=== PATIENT | male | born 1950 | race African-American/Black ===

== ENCOUNTER 2016-04-04 13:12 | Inpatient (IN) ==
[2016-04-04] MEDS ORDERED: DEXAMETHASONE 10 MG/1 ML VIAL IM STA (13:45)
[2016-04-04] MEDS ORDERED: cefTRIAXone 250 MG VIAL IM STA (13:45)
--- NOTE | 2016-04-04 13:55 | Emergency Department Note ---
Arrival - Arrival Chief Complaint: Upper Respiratory Stated Complaint: weak,low bp,feels faint ED Nursing Triage Note: C/o productive cough, sore throat, congestion, and runny nose-onset one week ago. Reports generalized weakness and "just not feeling well". Last chemo was last week. Mode of Arrival: Wheelchair Limitations: No Limitations Source: Patient Time Seen by Provider: 04/04/16 13:45 - History of Present Illness HPI Narrative: This 66-year-old black male presents with just several hours of sore throat, sinus congestion and maxillary tenderness, rhinorrhea, and cough productive of mcneill sputum. The patient just had an EGD yesterday for esophageal stricture dilatation at which time he was diagnosed with a bezoar as well. This was an uncomplicated procedure and the patient felt well last evening. He is currently under chemotherapy for multiple myeloma. He specifically denies any shaking chills, fever, nausea, or vomiting. Currently he appears in no acute distress. Onset (ago): hour(s) (patient presents 6 hours post onset of symptoms) Consistency: constant Allergies/Adverse Reactions: Allergies Allergy/AdvReac Type Severity Reaction Status Date / Time No Known Allergies Allergy Verified 11/08/15 09:41 Home Medications: Home Medications Medication Instructions Recorded Confirmed Type Glyburide/Metformin HCl 1 tablet PO TID 03/16/15 04/04/16 History [Glyburide-Metformin 5-500 mg] HYDROcodone/ACETAMIN 7.5-325 1 tablet PO Q4H PRN 03/16/15 04/04/16 History [[place] 7.5-325] Tamsulosin [Flomax] 1 tablet PO BID 03/16/15 04/04/16 History Insulin Glargine [Lantus] 35 unit SUBCUT BEDTIME 03/18/15 04/04/16 History Amitriptyline [Elavil] 25 mg PO BEDTIME 09/03/15 04/04/16 History Dexlansoprazole [Dexilant] 60 mg PO DAILY 09/03/15 04/04/16 History Carvedilol [Coreg] 3.125 mg PO BID #60 tablet 09/07/15 04/04/16 Rx Ipratropium/Albuterol Inhaler 1 puff INH QID #1 inhaler 11/14/15 04/04/16 Rx [Combivent Respimat Inhaler] Dexamethasone [Dexamethasone Tab] 40 mg PO Q7D 04/04/16 04/04/16 History Lisinopril 2.5 mg PO DAILY 04/04/16 04/04/16 History Review of System - Review of System 12 point system: reviewed and no additional remarkable complaints except as stated - Review of System Constitutional: Present: as per HPI Head/Ears/Nose/Throat: Present: see HPI Respiratory: Present: as per HPI Gastrointestinal: Present: as per HPI Medical,Surgical,& Family Hx - Medical History Cardio: History of: CHF, Hypertension No history of: Aneurysm, Cardiac Dysrhythmia, Cerebrovascular Disease, Congenital Heart Disease, [place], Pacemaker Neurology: No history of: Brain Aneurysm, Cerebral Hemorrhage, Seizures Endocrine: History of: Diabetes Mellitus (IDDM) Rheumatology: No history of;: Fibromyalgia Respiratory: History of: Bronchitis, COPD No history of: Obstructive Sleep Apnea Renal: No history of: Renal (Kidney) Cancer Genitourinary: No history of: Bladder Problem, Prostate Problems, Genitourinary Cancer Gastrointestinal: History of: GERD, GI Problems (esophageal stricture) No history of: Gastrointestinal Bleed Musculoskeletal: No history of: Amputation, Herniated Disk Hematology: History of: Hematologic Cancer (multiple myeloma) Other: History of: Cancer (MULTIPLE MYOLOMA) - Surgical History Cardiac Surgeries: Patient Denies: Cardiac Catheterization Thoracic Surgeries: Patient denies;: Lobectomy Neurologic Surgeries: Patient denies: Brain Aneurysm, Cerebral Hemorrhage, Neurologic Surgery Abdominal Surgeries: Surgical HX of: Abdominal Surgery, EGD (March [address] Gutierrez) Reproductive Surgeries: Patient denies;: Genitourinary Surgery Orthopedic Surgeries: Patient denies;: Orthopedic Surgery - Family History Family History: Reports;: Family Diabetes - Social History Smoking Status: Former smoker Frequency of Alcohol Use: None Type of Drug Use: None Exam Physical Examination: GENERAL: Well developed, well nourished white male in no acute distress. HEENT: Normocephalic. No trauma. Moist mucous membranes. EOMI. PERRLA. Ears : Bilateral [place] TMs, nose: Nasal mucosa erythema and edema with tender maxillary sinuses, throat: Mild injection NECK: Supple. Cervical adenopathy. CARDIAC: Regular. No murmurs. Rate 118 CHEST: Clear to auscultation. No respiratory distress. O2 sat 98% ABDOMEN: Soft. Nontender. Active bowel sounds. EXTREMITIES: No trauma. Normal ROM. No pedal edema. SKIN: No diaphoresis. No rash. NEURO: Alert. Physiologic exam No focal deficits. Vital Signs: Vital Signs Temperature 98.8 F 04/04/16 13:20 Pulse Rate 114 H 04/04/16 15:00 Respiratory Rate 20 04/04/16 15:00 Blood Pressure 180/98 04/04/16 13:20 O2 Sat by Pulse Oximetry 99 04/04/16 15:00 Course - Reevaluation(s) Reevaluation #1: Discussed with patient and family the need for hospitalization given his severe anemia and renal failure. - Consultations Consultation #1: Discussed with Dr. Alcazar, covering for Dr. Campa, who will admit for further evaluation treatment. Results - Labs CBC & BMP: 04/04/16 14:10 04/04/16 14:00 Labs: I reviewed the patient's laboratory noted the severely depressed hematocrit and moderately depressed platelets. I likewise noted elevated renal function numbers consistent with acute renal failure. - Diagnostic Findings Procedure: Chest x-ray: image reviewed by me, report reviewed by me ( cardiomegaly with questionable lower lobe opacities versus atelectasis) Disposition Clinical Impression: severe anemia, acute renal failure Case discussed with: patient, patient's family Condition: Guarded Time of Disposition: 16:23
[2016-04-04] MEDS ORDERED: ALBUTEROL 2.5 MG/3 ML NEB RESP TX STA (14:06)
[2016-04-04] MEDS ORDERED: SODIUM CHLORIDE 0.9% 500 ML IV STA (14:06)
[2016-04-04] MEDS ORDERED: methylPREDNISolone SOD SUC 125 MG/2 ML VIAL IV STA (14:06)
[2016-04-04] MEDS ORDERED: DEXAMETHASONE 10 MG/1 ML VIAL ONE (14:06)
[2016-04-04] MEDS ORDERED: LEVOFLOXACIN INJ 750 MG in PREMIX 1 EACH IV STA (14:06)
[2016-04-04 14:20] LABS: Eosinophils # 0.2 10*3/uL (0.0-0.87); Hematocrit 19.1 VOL% (42.0-52.0); Immature Granulocytes % 1.5 %; Immature Granulocytes Absolute 0.08 #; Lymphocytes # 0.2 10*3/uL (1.4-4.0); Lymphocytes % 3.8 % (21.2-54.2); Mean Corpuscular HGB Conc 31.4 GM/DL (32-36); Mean Corpuscular Hemoglobin 31 PG (27-34); Mean Corpuscular Volume 97.9 FL (87-102); Mean Platelet Volume 12.4 FL (9.6-12.0); Monocytes # 0.3 10*3/uL (0.11-0.8); Monocytes % 4.7 % (1.7-12.7); Neutrophils # 4.6 10*3/uL (1.4-7.4); Platelet Count 40 10*3/uL (130-400); Red Blood Count 1.95 10*6/uL (3.8-5.5); Red Cell Distribution Width 18.1 % (9.3-17.3); White Blood Count 5.3 10*3/uL (4.5-13.71)
[2016-04-04 14:26] LABS: INR 1.1; PT Patient Result 11.3 SECS; Partial Thromboplastin Time 29.2 SECS (0-40)
[2016-04-04] MEDS ORDERED: methylPREDNISolone SOD SUC 125 MG/2 ML VIAL ONE (14:26)
[2016-04-04] MEDS ORDERED: MEROPENEM 1,000 MG in SODIUM CHLORIDE 0.9% 100 ML IV STA (14:31)
[2016-04-04] MEDS ORDERED: MEROPENEM 1,000 MG VIAL IV ONE (14:40)
[2016-04-04 14:41] LABS: Albumin 3.2 G/DL (3.4-5.0); Bilirubin,Total 0.8 MG/DL (0.2-1.0); Calcium 7.1 MG/DL (8.5-10.1); Osmolality,Calculated 301.1 MOS/KG (273-304); Potassium 4.8 MMOL/L (3.5-5.1); Total Protein 6.4 G/DL (6.4-8.3)
--- NOTE | 2016-04-04 14:44 | XRay Report ---
Referring Physician: Carlos Earl Exam: XR chest 1V portable Date: April 04, 2016 at 2:14 PM Reason: Shortness of breath Comparison: Chest one view portable February 21, 2016 Findings: A right-sided Mediport is again present, and the cardiac silhouette is again mildly enlarged. There are mild scattered opacities within both lower lung zones. This likely represents atelectasis and possibly mild edema. No pneumothorax or definite pleural fluid is identified. The osseous structures appear stable. Impression: 1. Mild cardiomegaly. 2. There are mild scattered opacities within both lower lung zones. This likely represents atelectasis and possibly mild pulmonary edema. PROCEDURE INTERPRETED AT [facility] [place] DEPARTMENT OF RADIOLOGY Final Report Signed by: Dr. Samir Garcia
[2016-04-04 14:56] LABS: Alanine Aminotransferase 19 U/L (16-61); Albumin 3.2 G/DL (3.4-5.0); Alkaline Phosphatase 94 U/L (45-117); Aspartate Amino Transferase 11 U/L (0-37); Blood Urea Nitrogen 51 MG/DL (7-18); Calcium 7.2 MG/DL (8.5-10.1); Glucose 207 MG/DL (74-106); Osmolality,Calculated 300.3 MOS/KG (273-304); Potassium 4.8 MMOL/L (3.5-5.1); Sodium 141 MMOL/L (136-145); Total Protein 6.4 G/DL (6.4-8.3)
[2016-04-04 14:59] LABS: Troponin I Only 0.084 NG/ML (0.00-0.045)
[2016-04-04] MEDS ORDERED: ONDANSETRON 4 MG/2 ML VIAL IV PRN (16:12)
[2016-04-04 16:54] LABS: Band Neutrophils 3 % (0-10); Eosinophils 1 % (0-10); Lymphocytes 3 % (20-55); Platelet Estimate Decreased; Segmented Neutrophils 92 % (50-85); Total Cells Counted 100
[2016-04-04 16:55] LABS: Ovalocytes Few; Poikilocytosis 1+; Tear Drop Cells Few
--- NOTE | 2016-04-04 18:00 | Hospitalist History & Physical ---
Assessment and Plan - Time spent with patient Time spent with patient: Greater than 30 minutes (due to assessment, plan and documentation) (1) Flu Status: Acute Assessment and plan: admit to med surg tamiflu symptomatic treatment Current Visit: Yes (2) Acute kidney injury Status: Acute Assessment and plan: IVF's and repeat labs. Current Visit: Yes (3) Acute bronchitis Status: Acute Assessment and plan: iv abx Current Visit: Yes (4) Anemia Status: Acute Assessment and plan: transfuse 2 units PRBC's. repeat H/H post transfusion Current Visit: Yes (5) Multiple myeloma Status: Acute Assessment and plan: on chemotherapy. last tx 1 week ago per patient report on Velcade. Dr. Campa is his Oncologist Current Visit: No (6) Diabetes Status: Acute Current Visit: Yes (7) Hypertension Status: Chronic Current Visit: No Qualifiers: Hypertension type: essential hypertension Qualified Code(s): I10 - Essential (primary) hypertension History of Present Illness Chief complaint: upper respiratory symptoms History of present illness: Mr. Mcginnis is a 66 year old male who presents to the ED today for complaints of upper respiratory symptoms. He states that about 2 days ago he began to feel worse than usual. He states that he doesn't feel well most days. He is on Velcade for treatment of his multiple myeloma. Dr. Campa is his oncologist. H/ H is 09/15. WBC is 5.3 PLT 40. Initially it was thought that Mr. Mcginnis would be admitted to Dr. 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 However, once Mr. Mcginnis's flu swab returned positive, Dr. Alcazar refused to accept Mr. Mcginnis. I spoke with Dr. Deonte Harris who recommended that we admit Mr. Mcginnis and treat his acute issues at hand. I did call and speak to Dr. Alcazar regarding Mr. Mcginnis's admission and he felt that we should admit, treat for the flu and transfuse 2 units PRBC's. Upon assessment and interview, Mr. Mcginnis has a hx of DM and HTN that are well controlled on medications. He has had an episode of CHF in the past and sees Dr. Ricky Ashley for this. His last follow up appointment was in February 2016. He has had an echo and said everything was "okay". He also underwent a heart catherization that was negative. He did not require stents. Currently he is tachycardic in the low 100's. His creatinine is also noted to be 2.7 with his last creatinine being normal c/w acute renal failure. His calcium is low 7.2. He did have a cough productive of green and yellow sputum and his lungs are course bilaterally. CXR does not show an acute pneumonia at this time, and at least we will treat him for an Acute Bronchitis. He has a family medical history significant for HTN and DM, but no heart disease.He will be admitted for transfusion and tamiflu for influenza. He will also be given fluids for his acute kidney injury. Further plan and addendum to follow by Dr. Froilan Rajput. Home Medications Medication Instructions Recorded Confirmed Type Glyburide/Metformin HCl 1 tablet PO TID 03/16/15 04/04/16 History [Glyburide-Metformin 5-500 mg] HYDROcodone/ACETAMIN 7.5-325 1 tablet PO Q4H PRN 03/16/15 04/04/16 History [[place] 7.5-325] Tamsulosin [Flomax] 1 tablet PO BID 03/16/15 04/04/16 History Insulin Glargine [Lantus] 35 unit SUBCUT BEDTIME 03/18/15 04/04/16 History Amitriptyline [Elavil] 25 mg PO BEDTIME 09/03/15 04/04/16 History Dexlansoprazole [Dexilant] 60 mg PO DAILY 09/03/15 04/04/16 History Carvedilol [Coreg] 3.125 mg PO BID #60 tablet 09/07/15 04/04/16 Rx Ipratropium/Albuterol Inhaler 1 puff INH QID #1 inhaler 11/14/15 04/04/16 Rx [Combivent Respimat Inhaler] Dexamethasone [Dexamethasone Tab] 40 mg PO Q7D 04/04/16 04/04/16 History Lisinopril 2.5 mg PO DAILY 04/04/16 04/04/16 History Allergies Allergy/AdvReac Type Severity Reaction Status Date / Time No Known Allergies Allergy Verified 11/08/15 09:41 Medical,Surgical,& Family Hx - Medical History Cardio: History of: CHF, Hypertension No history of: Aneurysm, Cardiac Dysrhythmia, Cerebrovascular Disease, Congenital Heart Disease, [place], Pacemaker Neurology: No history of: Brain Aneurysm, Cerebral Hemorrhage, Seizures Endocrine: History of: Diabetes Mellitus (IDDM) Rheumatology: No history of;: Fibromyalgia Respiratory: History of: Bronchitis, COPD No history of: Obstructive Sleep Apnea Renal: No history of: Renal (Kidney) Cancer Genitourinary: No history of: Bladder Problem, Prostate Problems, Genitourinary Cancer Gastrointestinal: History of: GERD, GI Problems (esophageal stricture) No history of: Gastrointestinal Bleed Musculoskeletal: No history of: Amputation, Herniated Disk Hematology: History of: Hematologic Cancer (multiple myeloma) Other: History of: Cancer (MULTIPLE MYOLOMA) - Surgical History Cardiac Surgeries: Patient Denies: Cardiac Catheterization Thoracic Surgeries: Patient denies;: Lobectomy Neurologic Surgeries: Patient denies: Brain Aneurysm, Cerebral Hemorrhage, Neurologic Surgery Abdominal Surgeries: Surgical HX of: Abdominal Surgery, EGD (March [address] Gutierrez) Reproductive Surgeries: Patient denies;: Genitourinary Surgery Orthopedic Surgeries: Patient denies;: Orthopedic Surgery - Family History Family History: Reports;: Family Diabetes - Social History Smoking Status: Former smoker Frequency of Alcohol Use: None Type of Drug Use: None Marital Status: Lives With:: Spouse Functional capacity: independent ambulation - Constitutional Constitutional: Present: weakness. Absent: chills, fever(s) - EENT Eyes: Absent: blurry vision, diplopia Ears: Absent: decreased hearing, tinnitus Nose, mouth and throat: Absent: dysphagia, headache(s) - Cardiovascular Cardiovascular: Present: dyspnea on exertion. Absent: chest pain at rest, palpitations - Respiratory Respiratory: Present: cough, dyspnea on exertion, change in phlegm color (yellow /green sputum. ). Absent: hemoptysis - Gastrointestinal Gastrointestinal: Absent: abdominal pain, melena, nausea, vomiting - Genitourinary Genitourinary: Absent: difficulty urinating, dysuria, hematuria - Musculoskeletal Musculoskeletal: Absent: back pain, joint swelling - Neurological Neurological: Absent: confusion, dizziness - Psychiatric Psychiatric: Absent: anxiety, confusion, depression - Endocrine Endocrine: Absent: cold intolerance, heat intolerance - Hematologic/Lymphatic Hematologic/Lymphatic: Present: other (On chemotherapy for Multiple Myeloma) Exam - Constitutional Vitals: Period Temp Pulse Resp BP Sys/Treoj Pulse Ox Last 24 Hr 98.8 F 114-120 20-20 180/98 98-99 General appearance: normal weight, no acute distress - Head Head exam: Present: normal inspection, normocephalic - Eye Eye exam: Present: EOMI. Absent: scleral icterus Pupils: Present: MARIOLA, normal accommodation - ENT ENT exam: Present: normal exam, normal oropharynx - Neck Neck exam: Present: normal inspection. Absent: lymphadenopathy - Respiratory Respiratory exam: Present: other (scattered course lung sounds bilaterally. ). Absent: clear to auscultation bilaterally, accessory muscle use - Cardiovascular Cardiovascular exam: Present: tachycardia. Absent: carotid bruit - GI/Abdominal GI/Abdominal exam: Present: normal bowel sounds, soft. Absent: tenderness - Extremities Exam Extremities exam: Present: normal inspection. Absent: edema - Back Exam Back exam: Present: normal inspection. Absent: muscle spasm - Neurological Exam Neurological exam: Present: alert, oriented X3 - Psychiatric Psychiatric exam: Present: normal affect, normal mood - Skin Skin exam: Present: normal color, warm, dry, intact Results - Labs CBC & BMP: 04/04/16 14:10 04/04/16 14:00 Lab Results: I have reviewed the past 24 hour labs - Diagnostic Findings Procedure: Chest x-ray: report reviewed by me (no acute infiltrate)
[2016-04-04] MEDS ORDERED: GLUCAGON 1 MG VIAL IM PRN (18:02)
[2016-04-04] MEDS ORDERED: DEXTROSE 50% 25 GM/50 ML VIAL IV PRN (18:02)
[2016-04-04] MEDS ORDERED: BISACODYL 5 MG TABLET PO PRN ×2 (18:02→19:20)
[2016-04-04] MEDS ORDERED: MORPHINE 2 MG/1 ML SYRINGE IV PRN (18:02)
[2016-04-04] MEDS ORDERED: ACETAMINOPHEN 325 MG TABLET PO PRN (18:02)
[2016-04-04] MEDS ORDERED: DEXAMETHASONE 4 MG TABLET PO SCH (18:30)
[2016-04-04] MEDS ORDERED: LEVOFLOXACIN INJ 750 MG in PREMIX 1 EACH IV SCH ×2 (18:30→21:00)
[2016-04-04] MEDS: SODIUM CHLORIDE 0.9% 1,000 ML IV SCH (20:08)
[2016-04-04] MEDS: ALBUTEROL/IPRATROPIUM 3 ML NEB RESP TX SCH (20:30)
[2016-04-04] MEDS ORDERED: AMITRIPTYLINE 25 MG TABLET PO SCH (21:00)
[2016-04-04] MEDS ORDERED: OSELTAMIVIR 30 MG CAPSULE PO SCH (21:00)
[2016-04-04] MEDS ORDERED: IPRATROPIUM/ALBUTEROL INHALER INH SCH (21:00)
[2016-04-04] MEDS ORDERED: INSULIN GLARGINE 100 UNIT/ML SUBCUT SCH (21:00)
[2016-04-04] MEDS ORDERED: CARVEDILOL 3.125 MG TABLET PO SCH (21:00)
[2016-04-04] MEDS ORDERED: SODIUM CHLORIDE 0.9% 250 ML IV PRN (21:04)
[2016-04-04] MEDS: INSULIN GLARGINE 100 UNIT/ML SUBCUT SCH (21:13)
[2016-04-04] MEDS: INSULIN REGULAR 100 UNIT/ML SUBCUT SCH (21:13)
[2016-04-04] MEDS: TAMSULOSIN 0.4 MG CAPSULE PO SCH (21:13)
[2016-04-04] MEDS: AMITRIPTYLINE 25 MG TABLET PO SCH (21:13)
[2016-04-04] MEDS: CARVEDILOL 3.125 MG TABLET PO SCH (21:13)
[2016-04-04] MEDS: OSELTAMIVIR 30 MG CAPSULE PO SCH (21:15)
[2016-04-05 06:56] LABS: Eosinophils # 0.1 10*3/uL (0.0-0.87); Eosinophils % 1.9 % (0.00-10.9); Hematocrit 26.8 VOL% (42.0-52.0); Hemoglobin 8.6 GM/DL (14.0-18.0); Immature Granulocytes % 0.6 %; Immature Granulocytes Absolute 0.02 #; Lymphocytes # 0.1 10*3/uL (1.4-4.0); Lymphocytes % 3.8 % (21.2-54.2); Mean Corpuscular HGB Conc 32.1 GM/DL (32-36); Mean Corpuscular Hemoglobin 30 PG (27-34); Mean Corpuscular Volume 92.7 FL (87-102); Mean Platelet Volume 12.5 FL (9.6-12.0); Monocytes # 0.4 10*3/uL (0.11-0.8); Monocytes % 12.3 % (1.7-12.7); Neutrophils # 2.6 10*3/uL (1.4-7.4); Neutrophils % 81.4 % (38.7-73.9); Red Blood Count 2.89 10*6/uL (3.8-5.5); Red Cell Distribution Width 17.9 % (9.3-17.3); White Blood Count 3.2 10*3/uL (4.5-13.71)
[2016-04-05 06:57] LABS: Platelet Count 28 10*3/uL (130-400)
[2016-04-05] MEDS ORDERED: SODIUM CHLORIDE 0.9% 250 ML IV PRN (07:09)
[2016-04-05 07:29] LABS: Calcium 7.1 MG/DL (8.5-10.1); Osmolality,Calculated 302.7 MOS/KG (273-304)
[2016-04-05] MEDS: ALBUTEROL/IPRATROPIUM 3 ML NEB RESP TX SCH ×4 (07:38→19:39)
[2016-04-05] MEDS: INSULIN REGULAR 100 UNIT/ML SUBCUT SCH ×4 (07:51→21:28)
[2016-04-05] MEDS ORDERED: NON-FORMULARY MEDICATION (Dexlansoprazole [Dexilant] 60 MG) PO SCH (09:00)
[2016-04-05] MEDS: OSELTAMIVIR 30 MG CAPSULE PO SCH ×2 (09:18→21:24)
[2016-04-05] MEDS: CARVEDILOL 3.125 MG TABLET PO SCH ×2 (09:18→21:23)
[2016-04-05] MEDS: PANTOPRAZOLE 40 MG TABLET PO SCH (09:18)
[2016-04-05] MEDS: TAMSULOSIN 0.4 MG CAPSULE PO SCH ×2 (09:19→21:23)
[2016-04-05 09:53] LABS: Hypochromasia 1+; Microcytosis 1+
[2016-04-05] MEDS: SODIUM CHLORIDE 0.9% 1,000 ML IV SCH ×3 (12:48→21:26)
--- NOTE | 2016-04-05 14:12 | Hospitalist Progress Note ---
Assessment and Plan (1) Influenza A Status: Acute Current Visit: Yes (2) Acute bronchitis Status: Acute Current Visit: Yes (3) Multiple myeloma Status: Acute Current Visit: Yes (4) Acute renal failure due to tubular necrosis Status: Acute Current Visit: Yes (5) Anemia of chronic disease Status: Acute Current Visit: Yes (6) Thrombocytopenia Status: Acute Assessment and plan: Plan: 04/05: Continue Tamiflu, Levaquin, DuoNeb's and supplemental oxygen. We'll add some guaifenesin to help loosen secretions. Otherwise continue current medications and supportive care. Current Visit: Yes Hospitalist: Subjective Interval history: Mr. Mcginnis states he feels "a lot better," than on presentation. He is still coughing frequently. He does feel like he cannot cough up his secretions is easily. He has been afebrile, he denies shortness of breath or chest pain. He received 2 units packed red blood cells as well as a unit of platelets thus far. Exam - Constitutional Vitals: Period Temp Pulse Resp BP Sys/Trejo Pulse Ox Last 24 Hr 96.5 F-98.1 F 89-110 16-20 93-119/51-80 98-100 Exam: EXAM: CONSTITUTIONAL: non toxic, NAD HEENT: NC, AT, OP benign, MARIOLA, EOMI CV: RRR no m/g/r, Mediport right chest benign RESP: Coarse bilaterally with expiratory wheezes GI: abd soft, NT, ND, +bowel sounds INTEGUMENTARY: no lesions or rash EXTREMITIES: no c/c/e NEURO: no focal deficits PSYCH: unremarkable, A/O x3 Results - Labs CBC & BMP: 04/05/16 06:46 04/05/16 06:46 Lab Results: I have reviewed the past 24 hour labs - Diagnostic Findings Procedure: Chest x-ray: image reviewed by me, report reviewed by me Quality Measures - VTE Contraindication to Pharmacological VTE Prophylaxis: High Risk of Bleeding Specialty Discharge - Follow Up or Referrals - Discharge Medications No Action HYDROcodone/ACETAMIN 7.5-325 [[place] 7.5-325] 1 tablet PO Q4H PRN PRN Reason: Pain Glyburide/Metformin HCl [Glyburide-Metformin 5-500 mg] 1 tablet PO TID Tamsulosin [Flomax] 1 tablet PO BID Insulin Glargine [Lantus] 35 unit SUBCUT BEDTIME Amitriptyline [Elavil] 25 mg PO BEDTIME Dexlansoprazole [Dexilant] 60 mg PO DAILY Carvedilol [Coreg] 3.125 mg PO BID #60 tablet Ipratropium/Albuterol Inhaler [Combivent Respimat Inhaler] 1 puff INH QID #1 inhaler Lisinopril 2.5 mg PO DAILY Dexamethasone [Dexamethasone Tab] 40 mg PO Q7D
[2016-04-05] MEDS: AMITRIPTYLINE 25 MG TABLET PO SCH (21:23)
[2016-04-05] MEDS: guaiFENesin/DM ER 600-30 MG TABLET PO SCH (21:24)
[2016-04-05] MEDS: INSULIN GLARGINE 100 UNIT/ML SUBCUT SCH (21:24)
[2016-04-06 06:06] LABS: Basophils % 0.5 % (0.0-0.8); Eosinophils # 0.2 10*3/uL (0.0-0.87); Eosinophils % 7.7 % (0.00-10.9); Hematocrit 25.2 VOL% (42.0-52.0); Hemoglobin 7.8 GM/DL (14.0-18.0); Immature Granulocytes % 0.5 %; Immature Granulocytes Absolute 0.01 #; Lymphocytes # 0.1 10*3/uL (1.4-4.0); Lymphocytes % 5.9 % (21.2-54.2); Mean Corpuscular Hemoglobin 29 PG (27-34); Mean Corpuscular Volume 94.7 FL (87-102); Monocytes # 0.2 10*3/uL (0.11-0.8); Monocytes % 10.4 % (1.7-12.7); Neutrophils # 1.7 10*3/uL (1.4-7.4); Platelet Count 54 10*3/uL (130-400); Red Blood Count 2.66 10*6/uL (3.8-5.5); Red Cell Distribution Width 18.3 % (9.3-17.3); White Blood Count 2.2 10*3/uL (4.5-13.71)
[2016-04-06 06:42] LABS: Band Neutrophils 4 % (0-10); Eosinophils 8 % (0-10); Hypochromasia 1+; Lymphocytes 13 % (20-55); Macrocytosis 1+; Segmented Neutrophils 69 % (50-85); Total Cells Counted 100
[2016-04-06 06:43] LABS: Platelet Estimate Decreased
[2016-04-06 06:44] LABS: Calcium 6.4 MG/DL (8.5-10.1); Potassium 4.2 MMOL/L (3.5-5.1)
[2016-04-06] MEDS: ALBUTEROL/IPRATROPIUM 3 ML NEB RESP TX SCH ×4 (07:08→20:11)
[2016-04-06] MEDS: INSULIN REGULAR 100 UNIT/ML SUBCUT SCH ×4 (07:48→21:12)
[2016-04-06] MEDS: guaiFENesin/DM ER 600-30 MG TABLET PO SCH ×2 (09:11→21:12)
[2016-04-06] MEDS: TAMSULOSIN 0.4 MG CAPSULE PO SCH ×2 (09:11→21:12)
[2016-04-06] MEDS: CARVEDILOL 3.125 MG TABLET PO SCH ×2 (09:11→21:12)
[2016-04-06] MEDS: OSELTAMIVIR 30 MG CAPSULE PO SCH (09:11)
[2016-04-06] MEDS: PANTOPRAZOLE 40 MG TABLET PO SCH (09:11)
--- NOTE | 2016-04-06 11:13 | Oncology Progress Note ---
Oncology Subjective PN Interval history: For the record, I was contacted by the emergency room physician who did not provide complete information on the patient. He told me the patient was on chemotherapy for myeloma and was anemic and weak. He did not tell me that the patient had tested positive for influenza which was a contraindication to admitting the patient to the oncology unit. I found this information out from the emergency room nurse who subsequently called me. Actually, I called her first because I could not access any of this patient's electronic medical records even though I have been assured by IT that I would be able to do so. I was never able to access all of the patient's lab work. I was also not informed that the patient had a history of congestive heart failure. While I was informed that the patient had an elevated serum creatinine, it would have also been important to know that the patient had upper GI problems that included strictures of the esophagus for which he had been recently treated. In addition, in spite of what the admitting physician states on line 8 of the history of present illness, the only physician I spoke to was the emergency room physician. I never discussed this patient's case with the admitting physician. I also never refused to consult on this patient although I have not received a consultation request up to this point. Exam - Constitutional Vitals: Period Temp Pulse Resp BP Sys/Trejo Pulse Ox Last 24 Hr 97.4 F-98.5 F 74-111 16-20 98-144/52-80 91-100 Results - Labs CBC & BMP: 04/06/16 05:21 04/06/16 05:21 Quality Measures - VTE Contraindication to Pharmacological VTE Prophylaxis: High Risk of Bleeding Specialty Discharge - Follow Up or Referrals - Discharge Medications No Action HYDROcodone/ACETAMIN 7.5-325 [[place] 7.5-325] 1 tablet PO Q4H PRN PRN Reason: Pain Glyburide/Metformin HCl [Glyburide-Metformin 5-500 mg] 1 tablet PO TID Tamsulosin [Flomax] 1 tablet PO BID Insulin Glargine [Lantus] 35 unit SUBCUT BEDTIME Amitriptyline [Elavil] 25 mg PO BEDTIME Dexlansoprazole [Dexilant] 60 mg PO DAILY Carvedilol [Coreg] 3.125 mg PO BID #60 tablet Ipratropium/Albuterol Inhaler [Combivent Respimat Inhaler] 1 puff INH QID #1 inhaler Lisinopril 2.5 mg PO DAILY Dexamethasone [Dexamethasone Tab] 40 mg PO Q7D
[2016-04-06] MEDS ORDERED: FUROSEMIDE 20 MG/2 ML VIAL IV ONE (11:26)
[2016-04-06] MEDS: SODIUM CHLORIDE 0.9% 1,000 ML IV SCH (11:27)
--- NOTE | 2016-04-06 12:42 | XRay Report ---
History: Shortness of breath Date: 04/06/2016 Study: Chest x-ray AP portable Comparison exam: Chest x-ray April 04, 2016 The right upper extremity Mediport type catheter is stable in appearance. There is continued cardiomegaly. The mediastinal contours are unchanged. The pulmonary vasculature is slightly prominent. There is some increased patchy and hazy edema/infiltrate in either lower lung. There is mild elevation of the left hemidiaphragm. There is no gross pleural effusion. The osseous structures are unremarkable. Impression: Bibasilar airspace disease which could represent pulmonary edema or pneumonia PROCEDURE INTERPRETED AT [facility] DEPARTMENT OF RADIOLOGY Final Report Signed by: Dr. Florencia Sanchez
--- NOTE | 2016-04-06 14:35 | Hospitalist Progress Note ---
Assessment and Plan (1) Influenza A Status: Acute Current Visit: Yes (2) Multiple myeloma Status: Acute Current Visit: Yes (3) Bacterial pneumonia Status: Acute Current Visit: Yes (4) Acute renal failure due to tubular necrosis Status: Acute Current Visit: Yes (5) Anemia of chronic disease Status: Chronic Current Visit: Yes (6) Thrombocytopenia Status: Chronic Assessment and plan: Plan: 04/05: Continue Tamiflu, Levaquin, DuoNeb's and supplemental oxygen. We'll add some guaifenesin to help loosen secretions. Otherwise continue current medications and supportive care. 04/06: We'll adjust his Tamiflu and Levaquin dosage based on improved renal function. Continue duo nebs and oxygen as needed. He recently had an esophageal dilation and is having no problems with dysphagia. He feels like he is having a little trouble coughing up secretions, for now we'll continue the Mucinex to see if this loosens up. Otherwise continue supportive care. Current Visit: Yes Hospitalist: Subjective Interval history: Mr. Mcginnis is a very pleasant 66-year-old male admitted with influenza. He became a little more short of breath this morning. We have stopped his fluids, given the dose of Lasix and obtained a chest x-ray, which showed possible developing pneumonia. We already have him on Tamiflu and Levaquin. He is sitting up in bed without any oxygen and appears fairly comfortable. He is in no distress. Other than lack of appetite he has no complaints. He is receive blood and platelets and his counts are stable at this time. Exam - Constitutional Vitals: Period Temp Pulse Resp BP Sys/Trejo Pulse Ox Last 24 Hr 97.4 F-99.0 F 74-111 16-20 102-144/52-71 91-100 Exam: EXAM: CONSTITUTIONAL: non toxic, NAD HEENT: [place], AT, OP benign, MARIOLA, EOMI CV: RRR no m/g/r, Mediport right chest benign RESP: Coarse bilaterally with scattered rales bilaterally GI: abd soft, NT, ND, +bowel sounds INTEGUMENTARY: no lesions or rash EXTREMITIES: no c/c/e NEURO: no focal deficits PSYCH: unremarkable, A/O x3 Results - Labs CBC & BMP: 04/06/16 05:21 04/06/16 05:21 Lab Results: I have reviewed the past 24 hour labs - Diagnostic Findings Procedure: Chest x-ray: image reviewed by me, report reviewed by me Quality Measures - VTE Contraindication to Pharmacological VTE Prophylaxis: High Risk of Bleeding Specialty Discharge - Follow Up or Referrals - Discharge Medications No Action RX: HYDROcodone/ACETAMIN 7.5-325 [[place] 7.5-325] 1 tablet PO Q4H PRN PRN Reason: Pain RX: Glyburide/Metformin HCl [Glyburide-Metformin 5-500 mg] 1 tablet PO TID RX: Tamsulosin [Flomax] 1 tablet PO BID RX: Insulin Glargine [Lantus] 35 unit SUBCUT BEDTIME RX: Amitriptyline [Elavil] 25 mg PO BEDTIME RX: Dexlansoprazole [Dexilant] 60 mg PO DAILY RX: Carvedilol [Coreg] 3.125 mg PO BID #60 tablet RX: Ipratropium/Albuterol Inhaler [Combivent Respimat Inhaler] 1 puff INH QID #1 inhaler RX: Lisinopril 2.5 mg PO DAILY Dexamethasone [Dexamethasone Tab] 40 mg PO Q7D
[2016-04-06] MEDS: LEVOFLOXACIN INJ 750 MG in PREMIX 1 EACH IV SCH (15:19)
[2016-04-06] MEDS: AMITRIPTYLINE 25 MG TABLET PO SCH (21:12)
[2016-04-06] MEDS: OSELTAMIVIR 75 MG CAPSULE PO SCH (21:12)
[2016-04-06] MEDS: INSULIN GLARGINE 100 UNIT/ML SUBCUT SCH (21:15)
[2016-04-07] MEDS: ALBUTEROL/IPRATROPIUM 3 ML NEB RESP TX SCH ×4 (07:17→20:12)
[2016-04-07 07:25] LABS: Basophils % 0.5 % (0.0-0.8); Eosinophils # 0.1 10*3/uL (0.0-0.87); Eosinophils % 4.2 % (0.00-10.9); Hematocrit 25.5 VOL% (42.0-52.0); Hemoglobin 8.1 GM/DL (14.0-18.0); Immature Granulocytes % 0.9 %; Immature Granulocytes Absolute 0.02 #; Lymphocytes # 0.2 10*3/uL (1.4-4.0); Lymphocytes % 8.5 % (21.2-54.2); Mean Corpuscular HGB Conc 31.8 GM/DL (32-36); Mean Corpuscular Hemoglobin 30 PG (27-34); Mean Corpuscular Volume 94.1 FL (87-102); Mean Platelet Volume 11.4 FL (9.6-12.0); Monocytes # 0.2 10*3/uL (0.11-0.8); Monocytes % 10.3 % (1.7-12.7); Neutrophils # 1.6 10*3/uL (1.4-7.4); Neutrophils % 75.6 % (38.7-73.9); Platelet Count 43 10*3/uL (130-400); Red Blood Count 2.71 10*6/uL (3.8-5.5); Red Cell Distribution Width 17.8 % (9.3-17.3); White Blood Count 2.1 10*3/uL (4.5-13.71)
--- NOTE | 2016-04-07 07:35 | Physician Query Form ---
CLICK EDIT DOCUMENT TO SELECT QUERY ANSWER --> OK --> SIGN Haritha Gustafson RN, CCDS Certified Clinical Transformer Maker W) [phone] (f) [phone] [email or web address] PROVIDERS: Make your selection(s) from the choices in EACH section by typing an "x" and enter comments in the comment section. Please use your independent medical judgment in providing your response. This request does not imply that any particular answer is desired or expected. CLINICAL INDICATORS: (Providers should not edit this section) The medical record indicates that the patient was admitted with severe anemia, HH on admission of 6.0/19.1----HH on the 9th: 8.1/25.5, WBC of 2.1, RBC 2.71, Plt Count of 43# and the patient was given two units of blood, one unit of Plt' s and the patient "currently under chemotherapy for multiple myeloma". Based on the above, could you clarify which of the following conditions you are evaluating, treating, and/or monitoring? ( ) Blood loss anemia ( ) acute ( ) chronic ( ) acute on chronic ( ) Acute blood loss anemia on baseline chronic anemia ( ) Pancytopenia due to Chemotherapy (x ) Pancytopenia due to multiple myeloma ( ) Pancytopenia ( ) Acute blood loss anemia as a complication of a procedure ( ) Iron deficiency anemia not associated with blood loss ( ) Dilutional anemia due to IV fluids ( ) Anemia due to chemotherapy ( ) Anemia due to neoplastic disease ( ) Anemia due to chronic kidney disease ( ) Pernicious anemia ( ) Aplastic anemia ( ) Hemolytic anemia ( ) immune ( ) non-immune - please specify cause: ( ) Anemia due to other condition, please specify: ( ) Clinically unable to determine COMMENTS: Use of terms such as suspected, likely, or probable (associated with a specific diagnosis that is being evaluated, monitored, or treated as if it exists) are acceptable and can be restated in the discharge summary if not ruled out. MTDD
[2016-04-07] MEDS: INSULIN REGULAR 100 UNIT/ML SUBCUT SCH ×4 (07:37→22:38)
[2016-04-07 07:54] LABS: Band Neutrophils 2 % (0-10); Hypochromasia 2+; Lymphocytes 10 % (20-55); Microcytosis 2+; Platelet Estimate Decreased; Segmented Neutrophils 82 % (50-85); Total Cells Counted 100
[2016-04-07 07:55] LABS: Calcium 6.5 MG/DL (8.5-10.1); Osmolality,Calculated 292.7 MOS/KG (273-304); Potassium 4.2 MMOL/L (3.5-5.1)
[2016-04-07] MEDS: PANTOPRAZOLE 40 MG TABLET PO SCH (08:15)
[2016-04-07] MEDS: guaiFENesin/DM ER 600-30 MG TABLET PO SCH ×2 (08:15→22:39)
[2016-04-07] MEDS: OSELTAMIVIR 75 MG CAPSULE PO SCH ×2 (08:15→22:39)
[2016-04-07] MEDS: TAMSULOSIN 0.4 MG CAPSULE PO SCH ×2 (08:15→22:35)
[2016-04-07] MEDS: CARVEDILOL 3.125 MG TABLET PO SCH ×2 (08:15→22:38)
--- NOTE | 2016-04-07 12:39 | Hospitalist Progress Note ---
Assessment and Plan (1) Influenza A Status: Acute Current Visit: Yes (2) Multiple myeloma Status: Acute Current Visit: Yes (3) Bacterial pneumonia Status: Acute Current Visit: Yes (4) Acute renal failure due to tubular necrosis Status: Acute Current Visit: Yes (5) Anemia of chronic disease Status: Chronic Current Visit: Yes (6) Thrombocytopenia Status: Chronic Assessment and plan: Plan: 04/05: Continue Tamiflu, Levaquin, DuoNeb's and supplemental oxygen. We'll add some guaifenesin to help loosen secretions. Otherwise continue current medications and supportive care. 04/06: We'll adjust his Tamiflu and Levaquin dosage based on improved renal function. Continue duo nebs and oxygen as needed. He recently had an esophageal dilation and is having no problems with dysphagia. He feels like he is having a little trouble coughing up secretions, for now we'll continue the Mucinex to see if this loosens up. Otherwise continue supportive care. 04/07: We'll add cefepime to his antibiotic regimen. Renal function continues to improve. Continue duo nebs and oxygen, repeat a chest x-ray in the morning. Current Visit: Yes Hospitalist: Subjective Interval history: Mr. Mcginnis is having periods of increased shortness of breath. He was able to cough up some secretions earlier. He is easily fatigued with exertion. He is hemodynamically stable without fever. He does not appear toxic. His appetite is actually improved. Exam - Constitutional Vitals: Period Temp Pulse Resp BP Sys/Trejo Pulse Ox Last 24 Hr 97.9 F-99.4 F 55-115 16-20 98-120/54-74 95-99 Exam: EXAM: CONSTITUTIONAL: non toxic, NAD HEENT: NC, AT, OP benign, MARIOLA, EOMI CV: RRR no m/g/r, Mediport right chest benign RESP: Coarse with scattered rales bilaterally GI: abd soft, NT, ND, +bowel sounds INTEGUMENTARY: no lesions or rash EXTREMITIES: no c/c/e NEURO: no focal deficits PSYCH: unremarkable, A/O x3 Results - Labs CBC & BMP: 04/07/16 06:09 04/07/16 06:09 Lab Results: I have reviewed the past 24 hour labs Quality Measures - VTE Contraindication to Pharmacological VTE Prophylaxis: High Risk of Bleeding Specialty Discharge - Follow Up or Referrals - Discharge Medications No Action HYDROcodone/ACETAMIN 7.5-325 [[place] 7.5-325] 1 tablet PO Q4H PRN PRN Reason: Pain Glyburide/Metformin HCl [Glyburide-Metformin 5-500 mg] 1 tablet PO TID Tamsulosin [Flomax] 1 tablet PO BID Insulin Glargine [Lantus] 35 unit SUBCUT BEDTIME Amitriptyline [Elavil] 25 mg PO BEDTIME Dexlansoprazole [Dexilant] 60 mg PO DAILY Carvedilol [Coreg] 3.125 mg PO BID #60 tablet Ipratropium/Albuterol Inhaler [Combivent Respimat Inhaler] 1 puff INH QID #1 inhaler Lisinopril 2.5 mg PO DAILY Dexamethasone [Dexamethasone Tab] 40 mg PO Q7D
[2016-04-07] MEDS: CEFEPIME 1,000 MG in SODIUM CHLORIDE 0.9% 100 ML IV SCH (13:01)
[2016-04-07] MEDS: LEVOFLOXACIN INJ 750 MG in PREMIX 1 EACH IV SCH (14:06)
[2016-04-07] MEDS: glyBURIDE/METFORMIN 5-500 MG TABLET PO SCH (16:45)
[2016-04-07] MEDS: INSULIN GLARGINE 100 UNIT/ML SUBCUT SCH (22:32)
[2016-04-07] MEDS: AMITRIPTYLINE 25 MG TABLET PO SCH (22:38)
[2016-04-08] MEDS: CEFEPIME 1,000 MG in SODIUM CHLORIDE 0.9% 100 ML IV SCH ×2 (01:23→13:23)
[2016-04-08 06:24] LABS: Basophils % 0.7 % (0.0-0.8); Eosinophils # 0.2 10*3/uL (0.0-0.87); Hematocrit 24.3 VOL% (42.0-52.0); Hemoglobin 7.4 GM/DL (14.0-18.0); Immature Granulocytes % 0.7 %; Immature Granulocytes Absolute 0.01 #; Lymphocytes # 0.2 10*3/uL (1.4-4.0); Lymphocytes % 12.7 % (21.2-54.2); Mean Corpuscular HGB Conc 30.5 GM/DL (32-36); Mean Corpuscular Hemoglobin 29 PG (27-34); Mean Corpuscular Volume 95.7 FL (87-102); Mean Platelet Volume 11.4 FL (9.6-12.0); Monocytes # 0.1 10*3/uL (0.11-0.8); Monocytes % 8.7 % (1.7-12.7); Neutrophils % 63.2 % (38.7-73.9); Red Blood Count 2.54 10*6/uL (3.8-5.5); Red Cell Distribution Width 17.4 % (9.3-17.3); White Blood Count 1.5 10*3/uL (4.5-13.71)
[2016-04-08 07:02] LABS: Calcium 6.8 MG/DL (8.5-10.1); Osmolality,Calculated 290.6 MOS/KG (273-304); Potassium 4.4 MMOL/L (3.5-5.1)
[2016-04-08 07:20] LABS: Platelet Count 30 10*3/uL (130-400)
[2016-04-08 07:36] LABS: Band Neutrophils 2 % (0-10); Eosinophils 6 % (0-10); Hypochromasia 1+; Lymphocytes 18 % (20-55); Platelet Estimate Decreased; Segmented Neutrophils 63 % (50-85); Total Cells Counted 100
[2016-04-08 07:37] LABS: Microcytosis 1+
[2016-04-08] MEDS: INSULIN REGULAR 100 UNIT/ML SUBCUT SCH ×4 (07:50→20:55)
--- NOTE | 2016-04-08 08:14 | XRay Report ---
XR chest 2V Date: 04/08/2016 4:00 AM History: Shortness of breath, pneumonia Comparison: 04/06/2016 Technique: PA and lateral chest Findings: Stable cardiomegaly and right IJ venous access catheter. Reduction in the diffuse parenchymal findings the right mid to lower lung zone. More stable findings at the left lung base with persistent relative elevation left hemidiaphragm and small left pleural effusion. Stable mediastinum with degenerative changes. Impression: Improved pneumonia in the right mid to lower lung zone with more stable infiltration at the left lung base. Persistent relative elevation of the left hemidiaphragm with small left pleural effusion. PROCEDURE INTERPRETED AT [facility] DEPARTMENT OF RADIOLOGY Final Report Signed by: Dr. Graciela Freed
[2016-04-08] MEDS: ALBUTEROL/IPRATROPIUM 3 ML NEB RESP TX SCH ×4 (08:52→19:25)
[2016-04-08] MEDS: glyBURIDE/METFORMIN 5-500 MG TABLET PO SCH ×2 (09:03→16:08)
[2016-04-08] MEDS: PANTOPRAZOLE 40 MG TABLET PO SCH (09:03)
[2016-04-08] MEDS: CARVEDILOL 3.125 MG TABLET PO SCH ×2 (09:04→20:54)
[2016-04-08] MEDS: guaiFENesin/DM ER 600-30 MG TABLET PO SCH ×2 (09:04→20:54)
[2016-04-08] MEDS: OSELTAMIVIR 75 MG CAPSULE PO SCH ×2 (09:04→20:54)
[2016-04-08] MEDS: TAMSULOSIN 0.4 MG CAPSULE PO SCH ×2 (09:04→20:54)
--- NOTE | 2016-04-08 09:19 | Hospitalist Progress Note ---
Assessment and Plan (1) Influenza A Status: Acute Current Visit: Yes (2) Bacterial pneumonia Status: Acute Current Visit: Yes (3) Multiple myeloma Status: Acute Current Visit: Yes (4) Acute renal failure due to tubular necrosis Status: Resolved Current Visit: Yes (5) Anemia of chronic disease Status: Chronic Current Visit: Yes (6) Thrombocytopenia Status: Chronic Assessment and plan: Plan: 04/05: Continue Tamiflu, Levaquin, DuoNeb's and supplemental oxygen. We'll add some guaifenesin to help loosen secretions. Otherwise continue current medications and supportive care. 04/06: We'll adjust his Tamiflu and Levaquin dosage based on improved renal function. Continue duo nebs and oxygen as needed. He recently had an esophageal dilation and is having no problems with dysphagia. He feels like he is having a little trouble coughing up secretions, for now we'll continue the Mucinex to see if this loosens up. Otherwise continue supportive care. 04/07: We'll add cefepime to his antibiotic regimen. Renal function continues to improve. Continue duo nebs and oxygen, repeat a chest x-ray in the morning. 04/08: Continue current antibiotics cefepime/Levaquin. Acute renal failure is resolved. Continue nebs and oxygen, supportive care as otherwise. Current Visit: Yes Hospitalist: Subjective Interval history: Mr. Mcginnis appears more comfortable today. He is sitting up in the bed without any oxygen on at this time. He is tolerating a diet without any nausea or vomiting. He states his breathing is slowly getting better. He still sounds a fair bit congested. Chest x-ray was reviewed and shows some improvement of his pneumonia Exam - Constitutional Vitals: Period Temp Pulse Resp BP Sys/Trejo Pulse Ox Last 24 Hr 97.5 F-98.5 F 68-114 18-30 101-139/68-76 91-100 Exam: EXAM: CONSTITUTIONAL: non toxic, NAD HEENT: NC, AT, OP benign, MARIOLA, EOMI CV: RRR no m/g/r, Mediport right chest benign RESP: Coarse with scattered rales bilaterally GI: abd soft, NT, ND, +bowel sounds INTEGUMENTARY: no lesions or rash EXTREMITIES: no c/c/e NEURO: no focal deficits PSYCH: unremarkable, A/O x3 Results - Labs CBC & BMP: 01/10/17 06:04 04/08/16 06:04 Lab Results: I have reviewed the past 24 hour labs - Diagnostic Findings Procedure: Chest x-ray: image reviewed by me, report reviewed by me Quality Measures - VTE Contraindication to Pharmacological VTE Prophylaxis: High Risk of Bleeding Specialty Discharge - Follow Up or Referrals - Discharge Medications No Action HYDROcodone/ACETAMIN 7.5-325 [[place] 7.5-325] 1 tablet PO Q4H PRN PRN Reason: Pain Glyburide/Metformin HCl [Glyburide-Metformin 5-500 mg] 1 tablet PO TID Tamsulosin [Flomax] 1 tablet PO BID Insulin Glargine [Lantus] 35 unit SUBCUT BEDTIME Amitriptyline [Elavil] 25 mg PO BEDTIME Dexlansoprazole [Dexilant] 60 mg PO DAILY Carvedilol [Coreg] 3.125 mg PO BID #60 tablet Ipratropium/Albuterol Inhaler [Combivent Respimat Inhaler] 1 puff INH QID #1 inhaler Lisinopril 2.5 mg PO DAILY Dexamethasone [Dexamethasone Tab] 40 mg PO Q7D
[2016-04-08] MEDS: LEVOFLOXACIN INJ 750 MG in PREMIX 1 EACH IV SCH (14:36)
[2016-04-08] MEDS: INSULIN GLARGINE 100 UNIT/ML SUBCUT SCH (20:54)
[2016-04-08] MEDS: AMITRIPTYLINE 25 MG TABLET PO SCH (20:54)
[2016-04-09] MEDS: CEFEPIME 1,000 MG in SODIUM CHLORIDE 0.9% 100 ML IV SCH ×2 (00:42→13:45)
[2016-04-09 06:19] LABS: Eosinophils # 0.3 10*3/uL (0.0-0.87); Hematocrit 23.5 VOL% (42.0-52.0); Hemoglobin 7.5 GM/DL (14.0-18.0); Immature Granulocytes % 4.2 %; Immature Granulocytes Absolute 0.05 #; Lymphocytes # 0.2 10*3/uL (1.4-4.0); Lymphocytes % 19.3 % (21.2-54.2); Mean Corpuscular HGB Conc 31.9 GM/DL (32-36); Mean Corpuscular Hemoglobin 30 PG (27-34); Mean Corpuscular Volume 92.5 FL (87-102); Mean Platelet Volume 12.5 FL (9.6-12.0); Monocytes # 0.1 10*3/uL (0.11-0.8); Monocytes % 6.7 % (1.7-12.7); Neutrophils # 0.6 10*3/uL (1.4-7.4); Neutrophils % 48.8 % (38.7-73.9); Red Blood Count 2.54 10*6/uL (3.8-5.5); Red Cell Distribution Width 17.1 % (9.3-17.3); White Blood Count 1.2 10*3/uL (4.5-13.71)
[2016-04-09 06:21] LABS: Platelet Count 17 10*3/uL (130-400)
[2016-04-09 06:45] LABS: Band Neutrophils 1 % (0-10); Eosinophils 15 % (0-10); Lymphocytes 23 % (20-55); Segmented Neutrophils 54 % (50-85); Total Cells Counted 100
[2016-04-09 06:46] LABS: Elliptocytes Few; Hypochromasia 1+; Microcytosis 1+; Platelet Estimate Decreased
[2016-04-09 06:51] LABS: Calcium 6.9 MG/DL (8.5-10.1); Osmolality,Calculated 291.4 MOS/KG (273-304); Potassium 4.3 MMOL/L (3.5-5.1)
[2016-04-09] MEDS: ALBUTEROL/IPRATROPIUM 3 ML NEB RESP TX SCH ×4 (07:04→19:13)
[2016-04-09] MEDS: INSULIN REGULAR 100 UNIT/ML SUBCUT SCH ×4 (07:33→21:59)
[2016-04-09] MEDS ORDERED: DEXAMETHASONE 4 MG TABLET PO SCH (09:00)
[2016-04-09] MEDS: guaiFENesin/DM ER 600-30 MG TABLET PO SCH ×2 (10:04→21:58)
[2016-04-09] MEDS: TAMSULOSIN 0.4 MG CAPSULE PO SCH ×2 (10:04→21:58)
[2016-04-09] MEDS: OSELTAMIVIR 75 MG CAPSULE PO SCH ×2 (10:05→21:58)
[2016-04-09] MEDS: PANTOPRAZOLE 40 MG TABLET PO SCH (10:05)
[2016-04-09] MEDS: CARVEDILOL 3.125 MG TABLET PO SCH ×2 (10:05→22:03)
[2016-04-09] MEDS: glyBURIDE/METFORMIN 5-500 MG TABLET PO SCH ×2 (10:05→17:59)
[2016-04-09] MEDS ORDERED: SODIUM CHLORIDE 0.9% 250 ML IV PRN (12:45)
--- NOTE | 2016-04-09 13:37 | Hospitalist Progress Note ---
Assessment and Plan (1) Influenza A Status: Acute Assessment and plan: The patient is improving slowly. He has influenza A and upper airway congestion. He is at increased risk of gram-positive pneumonia as he recovers. The patient has had chemotherapy for multiple myeloma recently and platelets have been transfused. Platelets are falling again and I'm going to order another transfusion of platelets today. Current Visit: Yes (2) Multiple myeloma Status: Acute Current Visit: Yes (3) Thrombocytopenia Status: Chronic Current Visit: Yes Hospitalist: Subjective Interval history: The patient is resting quietly up in chair today. He is making incremental progress with minimally reduced pulmonary congestion of the upper airways today. The patient's appetite is improving slowly. The patient does not have any active bleeding. Exam - Constitutional Vitals: Period Temp Pulse Resp BP Sys/Trejo Pulse Ox Last 24 Hr 97.2 F-98.6 F 68-117 14-20 101-123/62-77 95-100 Exam: Constitutional System: Mild distress on account of airway congestion. No tremulousness. Head: Normocephalic, atraumatic. Ears, Nose and Throat System: No evidence of Otitis or Mastoiditis. No epistaxis or discharge Eyes System: Pupils equal, round, and reactive. Extraocular muscles intact. Neck: Supple, without adenopathy, No jugular venous distention. No thyromegaly , neck mass, or prior surgery apparent. Respiratory System: Chest moderate congestion to auscultation. Cardiovascular System: Heart with regular rate and rhythm. No murmur. GI System: Abdomen soft, nontender. Normoactive bowel sounds present. Musculoskeletal System: limbs with no pedal edema. Full distal pulses. Neurological System: No discernable sensory deficit. No aphasia Psychiatric System: Conversation is rational Results - Labs CBC & BMP: 04/09/16 05:51 04/09/16 05:51 Lab Results: I have reviewed the past 24 hour labs Quality Measures - VTE Contraindication to Pharmacological VTE Prophylaxis: High Risk of Bleeding Specialty Discharge - Follow Up or Referrals
[2016-04-09] MEDS: predniSONE 20 MG TABLET PO SCH ×2 (13:47→21:58)
[2016-04-09] MEDS: LEVOFLOXACIN INJ 750 MG in PREMIX 1 EACH IV SCH (14:30)
[2016-04-09] MEDS: AMITRIPTYLINE 25 MG TABLET PO SCH (21:58)
[2016-04-09] MEDS: INSULIN GLARGINE 100 UNIT/ML SUBCUT SCH (21:59)
[2016-04-10] MEDS: CEFEPIME 1,000 MG in SODIUM CHLORIDE 0.9% 100 ML IV SCH ×2 (00:36→14:34)
[2016-04-10 06:44] LABS: Eosinophils # 0.1 10*3/uL (0.0-0.87); Eosinophils % 5.5 % (0.00-10.9); Hemoglobin 7.8 GM/DL (14.0-18.0); Immature Granulocytes % 3.7 %; Immature Granulocytes Absolute 0.04 #; Lymphocytes # 0.2 10*3/uL (1.4-4.0); Lymphocytes % 16.5 % (21.2-54.2); Mean Corpuscular HGB Conc 31.2 GM/DL (32-36); Mean Corpuscular Hemoglobin 30 PG (27-34); Mean Corpuscular Volume 95.4 FL (87-102); Mean Platelet Volume 11.3 FL (9.6-12.0); Monocytes # 0.1 10*3/uL (0.11-0.8); Monocytes % 6.4 % (1.7-12.7); Neutrophils # 0.7 10*3/uL (1.4-7.4); Neutrophils % 67.9 % (38.7-73.9); Platelet Count 55 10*3/uL (130-400); Red Blood Count 2.62 10*6/uL (3.8-5.5); Red Cell Distribution Width 16.8 % (9.3-17.3); White Blood Count 1.1 10*3/uL (4.5-13.71)
[2016-04-10] MEDS: ALBUTEROL/IPRATROPIUM 3 ML NEB RESP TX SCH ×2 (07:09→11:05)
[2016-04-10 07:14] LABS: Band Neutrophils 3 % (0-10); Calcium 7.4 MG/DL (8.5-10.1); Elliptocytes Few; Eosinophils 3 % (0-10); Hypochromasia 1+; Lymphocytes 18 % (20-55); Magnesium 1.5 MG/DL (1.8-2.4); Microcytosis 1+; Platelet Estimate Decreased; Potassium 5.2 MMOL/L (3.5-5.1); Segmented Neutrophils 71 % (50-85); Total Cells Counted 100
[2016-04-10] MEDS: INSULIN REGULAR 100 UNIT/ML SUBCUT SCH ×2 (09:51→12:54)
[2016-04-10] MEDS: PANTOPRAZOLE 40 MG TABLET PO SCH (09:52)
[2016-04-10] MEDS: TAMSULOSIN 0.4 MG CAPSULE PO SCH (09:52)
[2016-04-10] MEDS: OSELTAMIVIR 75 MG CAPSULE PO SCH (09:52)
[2016-04-10] MEDS: glyBURIDE/METFORMIN 5-500 MG TABLET PO SCH (09:52)
[2016-04-10] MEDS: guaiFENesin/DM ER 600-30 MG TABLET PO SCH (09:52)
[2016-04-10] MEDS: predniSONE 20 MG TABLET PO SCH (09:52)
[2016-04-10] MEDS: CARVEDILOL 3.125 MG TABLET PO SCH (09:52)
[2016-04-10 11:55] VITALS: BP 115/66
--- NOTE | 2016-04-10 12:24 | Discharge Summary ---
Hospital Course - Hospital Course Hospital Course: The patient was admitted to the hospital with acute influenza A. The patient has some underlying debility due to multiple myeloma which is receiving treatment by Dr. Alcazar. The patient had considerable upper airway congestion , fever, substernal chest pain consistent with influenza at the time of admission. The patient remained febrile for 4 days. The patient was treated with Tamiflu. The patient did not develop any parainfluenza complications. The patient received platelet transfusion at admission and again on the fifth hospital day. The patient's congestion is improving, fever has resolved, and the patient is ready to continue recovery at home. On the date of discharge, chest has continued congestion but improved. Heart has regular rate and rhythm, abdomen soft. - Time spent with patient Time with patient DS: Greater than 30 minutes Diagnosis - Discharge Diagnosis (1) Influenza A Status: Resolved (2) Multiple myeloma Status: Chronic (3) Thrombocytopenia Status: Chronic Specialty Discharge - Follow Up or Referrals Discharge Plan - Discharge Data Disposition: Disch To Home/Self Care Condition at Discharge: Stable Discharge Diet: advance to your usual diet Activity: resume usual activities as tolerated - Discharge Medications New Cefuroxime Tab [Ceftin] 250 mg PO BID #10 tablet Continue HYDROcodone/ACETAMIN 7.5-325 [[place] 7.5-325] 1 tablet PO Q4H PRN PRN Reason: Pain Glyburide/Metformin HCl [Glyburide-Metformin 5-500 mg] 1 tablet PO TID Tamsulosin [Flomax] 1 tablet PO BID Insulin Glargine [Lantus] 35 unit SUBCUT BEDTIME Amitriptyline [Elavil] 25 mg PO BEDTIME Dexlansoprazole [Dexilant] 60 mg PO DAILY Carvedilol [Coreg] 3.125 mg PO BID #60 tablet Ipratropium/Albuterol Inhaler [Combivent Respimat Inhaler] 1 puff INH QID #1 inhaler Lisinopril 2.5 mg PO DAILY Dexamethasone [Dexamethasone Tab] 40 mg PO Q7D - Follow Up or Referral Follow Up: Gordy Alcazar MD [Physician] - - Forms/Instructions Instructions: H1N1 Influenza (DC) Exam - Constitutional Vitals: Period Temp Pulse Resp BP Sys/Trejo Pulse Ox Last 24 Hr 96.9 F-98.5 F 91-110 17-20 102-124/63-78 94-100 Discharge Results Labs on day of discharge: Labs from last 24 hours 04/10/16 04/10/16 04/10/16 07:05 05:35 05:35 WBC 1.1 L RBC 2.62 L Hgb 7.8 L Hct 25.0 L MCV 95.4 MCH 30 MCHC 31.2 L RDW 16.8 Plt Count 55 L D MPV 11.3 Neut % (Auto) 67.9 Lymph % (Auto) 16.5 L [place] % (Auto) 6.4 Eos % (Auto) 5.5 Baso % (Auto) 0.0 Neut # (Auto) 0.7 L Lymph # (Auto) 0.2 L [place] # (Auto) 0.1 L Eos # (Auto) 0.1 Baso # (Auto) 0.0 Total Counted 100 Immature Gran % 3.7 Nucleated RBC % 0.0 Immature Gran # 0.04 Segmented Neutrophils 71 Band Neutrophils 3 Lymphocytes 18 L Monocytes 5 Eosinophils 3 Nucleated RBCs # 0.00 Platelet Estimate Decreased Hypochromasia 1+ Microcytosis 1+ Elliptocytes Few Morphology Comment Sodium 143 Potassium 5.2 H Chloride 109 H Carbon Dioxide 21 Anion Gap 18.2 H BUN 25 H Creatinine 1.50 H GFR Calculation 66 BUN/Creatinine Ratio 16.00 Glucose 169 H POC Glucose 216 H Calculated Osmolality 292.0 Calcium 7.4 L Magnesium 1.5 L 04/09/16 04/09/16 19:28 16:14 WBC RBC Hgb Hct MCV MCH MCHC RDW Plt Count MPV Neut % (Auto) Lymph % (Auto) [place] % (Auto) Eos % (Auto) Baso % (Auto) Neut # (Auto) Lymph # (Auto) [place] # (Auto) Eos # (Auto) Baso # (Auto) Total Counted Immature Gran % Nucleated RBC % Immature Gran # Segmented Neutrophils Band Neutrophils Lymphocytes Monocytes Eosinophils Nucleated RBCs # Platelet Estimate Hypochromasia Microcytosis Elliptocytes Morphology Comment Sodium Potassium Chloride Carbon Dioxide Anion Gap BUN Creatinine GFR Calculation BUN/Creatinine Ratio Glucose POC Glucose 264 H 243 H Calculated Osmolality Calcium Magnesium DS: Provider Date of admission: 04/04/16 18:03 Primary care physician: . No PCP Attending physician on admission: Froilan Rajput DO Consults: 04/04/16 20:11 Consult to Pharmacy [CONS] Routine Reason for Pharmacy Consult: Adjust Meds Renal Funct Discharging clinician: Joe Gil MD
== END 2016-04-10 14:40 | disposition home or self-care (01) | DRG 194 ==
LOC: N.ED 13:12 → N.EDINP 16:11 → SUATTDRO 18:03 → N.5E 18:03 → N.ED 18:58
PROVIDERS: ADMIT Internal Medicine; ATTEND Internal Medicine